=== PATIENT | female | born 1995 | race Caucasian/White ===

== ENCOUNTER 2023-08-26 02:05 | Emergency (ER) | payer OTHER, SELFPAY ==
--- NOTE | 2023-08-26 02:46 | EKG12_ITS ---
Test Reason : DYSRHYTHMIA Blood Pressure : / mmHG Vent. Rate : 080 BPM Atrial Rate : 080 BPM P-R Int : 150 ms QRS Dur : 082 ms QT Int : 392 ms P-R-T Axes : 048 053 016 degrees QTc Int : 452 ms Normal sinus rhythm Normal ECG Confirmed by CURTIS ELAINE, JENELLE ([id number]), film editor supervisor NICKOLAS CHAN ([id number]) on 08/27/2023 10:45:59 AM Referred By: BIJU Confirmed By:JENELLE ACEVEDO MD
--- NOTE | 2023-08-26 06:04 | EX.ED.DYSGE1 ---
HPI Narrative Narrative: Bambi Mcdonald 1995 HPI: Patient is a G2, P1 female approximate 38 weeks who states she has been having intermittent bouts of lightheadedness over the past 1 to 2 weeks. ?She states her first was carried to term without any issues and this was approximately 3 years ago. ?She states she has been following with OB without any issues but in the last 2 weeks has had 4-5 episodes where she feels lightheaded and this can occur when she is up moving or even if she is sitting or laying down. ?She states there is no chest pain or palpitations when this occurs.? She states that the feeling is a sensation between lightheadedness/near syncope versus motion or dizziness. ?She reports there is no abdominal pain no vaginal bleeding no discharge. 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 ?She states that this evening she had a repeat event and as this occurred a few times in the past few weeks was concerned and brought the patient in for further evaluation. Review of systems: Review of systems is positive for lightheadedness/dizziness Review of systems is negative for abdominal pain fevers chills nausea vomiting diarrhea dysuria vaginal bleeding or discharge. ?It is also negative for chest pain or palpitations Physical exam: General: Awake alert no acute distress Heart: Regular rate and rhythm no murmurs rubs or gallops noted Lungs: Clear to auscultation without signs of respiratory distress Abdomen: Gravid with normal active bowel sounds no pain with palpation no deformity noted Skin: Skin is pale in color and turgor is slightly elevated HEENT: Mucous membranes are slightly dry and tacky without secondary changes to suggest infection.? Bilateral TMs show no sign of infection Neurologic: Cranial nerves II through XII are grossly intact there are no focal neurologic deficits. ?No pronator drift no dysmetria no truncal ataxia. ?Strength is plus 5 out of 5 in both arms and legs.? NIH stroke scale score is 0. ?No nystagmus noted. Negative Hallpike Yefri exam Medical decision making: EKG displays normal sinus rhythm at a rate of 80 without acute current of injury or dysrhythmia change. ?QTc is 452 and UT interval is normal at 150 Patient presented to the ER with stable vitals and a normal neurologic exam. ?He reported sensation of dizziness which she described as a combination of lightheadedness/near syncope and motion.? However she had did not have nystagmus and I cannot reproduce any symptoms with Hallpike Yefri exam going against vertigo as a cause of her symptoms. ?She is 38 weeks and her NIH stroke scale score is 0 so I do not feel this is an acute CVA or vertebrobasilar insufficiency and do not feel need for CT or CTA of the head. ?She is pale in color and there is concern for anemia physical exam also suggest dehydration so she could be orthostatic positive as a cause of her symptoms or even be having compression of her inferior vena cava as she does states she lies more on her right side and her back when she tries to sleep. ?Basic labs were obtained which show a stable hemoglobin of 12 and normal kidney function and electrolytes and her urine sample does not show signs of infection. ?She was given 2 L of IV fluid as she was orthostatic positive and following this she was able to stand and ambulate without symptoms. ?Therefore at this time with improvement of symptoms with IV hydration and negative workup I feel she is safe for discharge Diagnosis: Orthostatic near syncope Dehydration Intrauterine Discharge Plan Triage ED Provider: Robert Gibbons Dx/Rx/DC Orders Clinical Impression: Orthostatic syncope, Intrauterine , Dehydration Primary Care Provider: Tong Hylton Referrals: Tong Hylton DO [Primary Care Provider] - Disposition Disposition: Home, Self Care
[2023-08-26 06:20] LABS: Anion Gap 10 (5-15); BUN 6 mg/dL (7-18); BUN/Creat Ratio 10.3 RATIO (10-20); Calcium,Total 8.9 mg/dL (8.5-10.1); Chloride 104 mmol/L (98-107); Creatinine, Serum 0.58 mg/dL (0.55-1.02); EST Glomerular Filtration Rate 133 mL/min (>60); Est Glom Filt Rate - Afr Amer 161 mL/min (>60); Glucose 95 mg/dL (74-106); Potassium 3.2 mmol/L (3.5-5.1); Sodium Level 139 mmol/L (136-145)
[2023-08-26 06:23] LABS: Bacteria 0 SEEN /hpf (None Seen); Mucous, Urine 0 SEEN /hpf (<or=2+); Red Blood Cells-Urine 0 SEEN /hpf (0-5); White Blood Cells 0 SEEN /hpf (0-5)
[2023-08-26 06:39] LABS: Magnesium 1.8 mg/dL (1.6-2.6)
[2023-08-26 12:46] LABS: Color, Urine Yellow (Yellow); Glucose, Dipstick Normal (Normal); Urine Clarity Clear (Clear)
[2023-08-26 12:47] LABS: Ketone-Dipstick Negative (Negative); Leukocyte Esterase-Dipstick Negative /ul (Negative); Nitrite-Dipstick Negative (Negative); Occult Blood-Urine Negative /ul (Negative); Protein-Dipstick Negative (Negative); Specific Gravity, Urine 1.005 (1.002-1.030); Squamous Epithelial Cells - UA 0-5 SEEN /hpf (5-10); Urine Bilirubin Dipstick Negative (Negative); Urine Urobilinogen Normal (Normal)
[2023-08-26 12:48] LABS: Hematocrit 36.7 % (37-47); Hemoglobin 12.2 g/dL (12.0-15.0); Red Blood Count 4.06 M/mm3 (4.2-5.4); White Blood Count 9.6 K/mm3 (4.4-11.0)
[2023-08-26 12:49] LABS: Lymphocyte % 17.4 % (19-41); Mean Corp Hgb Conc 33.2 g/dL (32-36); Mean Corpuscular Volume 90.4 fL (81-99); Mean Platelet Vol. 9.7 fl (6.2-12.0); Monocyte% 6.3 % (0-10); Platelet Count 202 K/mm3 (150-450); RBC Distribution Width CV 13.2 % (11.6-14.6); RBC Distribution Width SD 43.7 fl (35.1-43.9)
[2023-08-26 12:50] LABS: Absolute Lymphocyte Count 1.67 X10^3/uL (0.83-4.51); Absolute Neutrophil Count 7.2 X10^3/uL (2.0-7.7); Basophil% 0.2 % (0-1); Eosinophil# 0.04 X10^3/uL; Eosinophils% 0.4 % (0-5); Lymphocyte # 1.67 X10^3/ul (0.83-4.51); Neutrophil # 7.18 X10^3/uL (2.7-7.7)
[2023-08-26 12:53] LABS: Basophil# 0.02 X10^3/uL; NRBC Flagged by Analyzer 0 % (0-5)
== END 2023-08-26 14:00 | disposition home or self-care (01) ==
PROVIDERS: Emergency Provider Emergency Medicine; PCP Family Medicine; Visit Provider Emergency Medicine
DX: O99.283 Endocrine, nutritional and metabolic diseases complicating pregnancy, third trimester (principal); E86.0 Dehydration; R55 Syncope and collapse; Z3A.38 38 weeks gestation of pregnancy; O99.891 Other specified diseases and conditions complicating pregnancy
CPT/HCPCS: 80048; 81001; 83735; 85025; 93005; J7030